=== PATIENT | female | born 1955 | race Caucasian/White ===

== ENCOUNTER → 2016-07-07 | Outpatient (CLI) | payer BC | LOC: EXRD 10:33 | DX: R05 Cough (principal); R06.00 Dyspnea, unspecified | CPT/HCPCS: 71020 ==

== ENCOUNTER → 2020-06-04 | Outpatient (CLI) | payer BC, OTHER ==
[~2020-06-04] MED LIST: ASPIR 8181 MG PO; B COMPLEX PO; CHANTIX0.5 MG PO; CLONIDINE HCL0.1 MG PO; CRESTOR20 MG PO; DIOVAN40 MG PO; FISH OIL 1,0001 EAC3 PO; LISINOPRIL10 MG PO; LORATADINE10 MG PO; METOPROLOL TART25 MG PO; NORCO 5-325 TA1 EACH PO; PRILOSEC OTC20 MG PO; PROTONIX 40 MG40 M1 PO; RANEXA500 MG PO; SYNTHROID50 MCG PO; TRAZODONE HCL50 MG PO; VENTOLIN HFA 66.7 GM INH; VIT B12 INJ; VIT C PO; VIT D3 PO; VIT E PO; ZINC SULFATE220 M1 PO; [UNRECOGNIZED DRUG - OTHER] PO
== END ==
LOC: CT 11:28
DX: C34.90 Malignant neoplasm of unspecified part of unspecified bronchus or lung (principal); R06.09 Other forms of dyspnea; B39.4 Histoplasmosis capsulati, unspecified; R91.1 Solitary pulmonary nodule; Z90.2 Acquired absence of lung [part of]; Z87.891 Personal history of nicotine dependence
CPT/HCPCS: 71260; Q9967

== ENCOUNTER → 2021-05-23 | Outpatient (CLI) | payer BC | LOC: KOH-I 05-20 09:30 | DX: R10.84 Generalized abdominal pain (principal); G89.29 Other chronic pain; R11.0 Nausea; B39.4 Histoplasmosis capsulati, unspecified | CPT/HCPCS: 76700 ==

== ENCOUNTER → 2021-06-05 | Outpatient (CLI) | payer BC | LOC: KOH-I 10:27 | DX: Z87.891 Personal history of nicotine dependence (principal); R91.1 Solitary pulmonary nodule; Z90.2 Acquired absence of lung [part of] | CPT/HCPCS: 71271 ==

== ENCOUNTER → 2021-11-08 | Outpatient (CLI) | payer BC | LOC: NM 10-31 09:00 | DX: R19.7 Diarrhea, unspecified (principal); R10.84 Generalized abdominal pain; R14.0 Abdominal distension (gaseous); R10.13 Epigastric pain | CPT/HCPCS: 78264; A9541 ==